=== PATIENT | female | born 1990 | race African-American/Black ===

== ENCOUNTER 2018-11-29 23:54 | Emergency (ER) | payer SELFPAY ==
[~2018-11-29] VITALS: Ht 165.1 cm; Wt 45.4 kg
[~2018-11-29 23:54] MED LIST: ESTR2TAB PO; OMEP40CA5 PO
--- NOTE | 2018-11-30 00:11 | PHYS DOC ---
Past Medical History Past Medical History: Constipation Additional Past Medical Histor: Hernia Past Surgical History: , Hysterectomy Additional Past Surgical Histo: LEEP, D&C , Alcohol Use: Occasionally Drug Use: Marijuana Adult General Chief Complaint Chief Complaint: DIZZY/LIGHT HEADED HPI HPI Patient is a 28 year old female who presents with dizziness. Patient reports that things feel like they're spinning. Worse with change in head position as well as movement. There is nausea with no vomiting. No head trauma. No tinnitus. Fixation on an object does not seem to make things better. Patient was recently diagnosed with a viral syndrome at approximately 4 days ago. She denies any fevers or chills. No neck stiffness.[] Review of Systems Review of Systems Constitutional: Denies fever or chills [] Eyes: Denies change in visual acuity, redness, or eye pain [] HENT: Denies nasal congestion or sore throat [] Respiratory: Denies cough or shortness of breath [] Cardiovascular: No chest pain or palpitations[] GI: Denies abdominal pain, nausea, vomiting, bloody stools or diarrhea [] : Denies dysuria or hematuria [] Musculoskeletal: Denies back pain or joint pain [] Integument: Denies rash or skin lesions [] Neurologic: Denies headache, focal weakness or sensory changes [] Endocrine: Denies polyuria or polydipsia [] All other systems were reviewed and found to be within normal limits, except as documented in this note. Current Medications Current Medications Current Medications Medications (Trade) Dose Ordered Sig/Maldonado Start Time Stop Time Status Last Admin Dose Admin Meclizine HCl (Antivert) 25 mg 1X ONCE 11/30/18 00:15 11/30/18 00:16 DC 11/30/18 00:53 25 MG Ondansetron HCl (Zofran) 4 mg 1X ONCE 11/30/18 00:15 11/30/18 00:16 DC 11/30/18 00:53 4 MG Allergies Allergies Allergies Coded Allergies Type Severity Reaction Last Updated Verified trazodone Allergy Unknown itching 02/26/14 Yes Physical Exam Physical Exam Constitutional: Well developed, well nourished, no acute distress, non-toxic appearance. [] HENT: Normocephalic, atraumatic, bilateral external ears normal, oropharynx moist, no oral exudates, nose normal. [] Eyes: PERRLA, EOMI, conjunctiva normal, no discharge. [] Neck: Normal range of motion, no tenderness, supple, no stridor. [] Cardiovascular:Heart rate regular rhythm, no murmur [] Lungs & Thorax: Bilateral breath sounds clear to auscultation [] Abdomen: Bowel sounds normal, soft, no tenderness, no masses, no pulsatile masses. [] Skin: Warm, dry, no erythema, no rash. [] Back: No tenderness, no CVA tenderness. [] Extremities: No tenderness, no cyanosis, no clubbing, ROM intact, no edema. [] Neurologic: Alert and oriented X 3, normal motor function, normal sensory function, no focal deficits noted. No nystagmus noted with Hallpike maneuvers [] Psychologic: Affect normal, judgement normal, mood normal. [] Current Patient Data Vital Signs Vital Signs Date Time Temp Pulse Resp B/P (MAP) Pulse Ox O2 Delivery O2 Flow Rate FiO2 11/29/18 23:55 98.3 64 16 132/85 (101) 100 Room Air 98.3 Lab Values Laboratory Tests Test 11/30/18 00:30 11/30/18 01:00 White Blood Count 8.8 x10^3/uL (4.0-11.0) Red Blood Count 3.73 x10^6/uL (3.50-5.40) Hemoglobin 12.7 g/dL (12.0-15.5) Hematocrit 35.1 % (36.0-47.0) L Mean Corpuscular Volume 94 fL (79-100) Mean Corpuscular Hemoglobin 34 pg (25-35) Mean Corpuscular Hemoglobin Concent 36 g/dL (31-37) Red Cell Distribution Width 12.2 % (11.5-14.5) Platelet Count 305 x10^3/uL (140-400) Neutrophils (%) (Auto) 32 % (31-73) Lymphocytes (%) (Auto) 60 % (24-48) H Monocytes (%) (Auto) 5 % (0-9) Eosinophils (%) (Auto) 2 % (0-3) Basophils (%) (Auto) 1 % (0-3) Neutrophils # (Auto) 2.8 x10^3uL (1.8-7.7) Lymphocytes # (Auto) 5.2 x10^3/uL (1.0-4.8) H Monocytes # (Auto) 0.5 x10^3/uL (0.0-1.1) Eosinophils # (Auto) 0.2 x10^3/uL (0.0-0.7) Basophils # (Auto) 0.1 x10^3/uL (0.0-0.2) Prothrombin Time 12.9 SEC (11.7-14.0) Prothrombin Time INR 1.0 (0.8-1.1) Sodium Level 140 mmol/L (136-145) Potassium Level 3.7 mmol/L (3.5-5.1) Chloride Level 105 mmol/L (98-107) Carbon Dioxide Level 26 mmol/L (21-32) Anion Gap 9 (6-14) Blood Urea Nitrogen 13 mg/dL (7-20) Creatinine 0.6 mg/dL (0.6-1.0) Estimated GFR (Cockcroft-Gault) 142.0 BUN/Creatinine Ratio 22 (6-20) H Glucose Level 88 mg/dL (70-99) Calcium Level 9.3 mg/dL (8.5-10.1) Magnesium Level 2.0 mg/dL (1.8-2.4) Total Bilirubin 0.2 mg/dL (0.2-1.0) Aspartate Amino Transferase (AST) 16 U/L (15-37) Alanine Aminotransferase (ALT) 35 U/L (14-59) Alkaline Phosphatase 86 U/L (46-116) Total Protein 7.4 g/dL (6.4-8.2) Albumin 3.6 g/dL (3.4-5.0) Albumin/Globulin Ratio 0.9 (1.0-1.7) L Urine Collection Type Unknown Urine Color Yellow Urine Clarity Clear Urine pH 6.5 Urine Specific [place] >=1.030 Urine Protein 30 mg/dL (NEG-TRACE) Urine Glucose (UA) Negative mg/dL (NEG) Urine Ketones (Stick) 15 mg/dL (NEG) Urine Blood Negative (NEG) Urine Nitrite Negative (NEG) Urine Bilirubin Negative (NEG) Urine Urobilinogen Dipstick 1.0 mg/dL (0.2 mg/dL) Urine Leukocyte Esterase Negative (NEG) Urine RBC Occ /HPF (0-2) Urine WBC Occ /HPF (0-4) Urine Squamous Epithelial Cells Mod /LPF Urine Bacteria Few /HPF (0-FEW) Urine Mucus Marked /LPF Urine Opiates Screen Neg (NEG) Urine Methadone Screen Neg (NEG) Urine Barbiturates Neg (NEG) Urine Phencyclidine Screen Neg (NEG) Urine Amphetamine/Methamphetamine Neg (NEG) Urine Benzodiazepines Screen Neg (NEG) Urine Cocaine Screen Neg (NEG) Urine Cannabinoids Screen Pos (NEG) Urine Ethyl Alcohol Neg (NEG) Laboratory Tests 11/30/18 00:30 Laboratory Tests 11/30/18 00:30 EKG EKG EKG shows a sinus rhythm at 65 bpm, normal axis, QTC of 425 ms, no ST elevations.[] Radiology/Procedures Radiology/Procedures CT head without contrast: Reason for examination: Dizziness and vertigo. Axial images were obtained to the brain. No contrast was administered. Exposure: One or more of the following individualized dose reduction techniques were utilized for this examination: 1. Automated exposure control 2. Adjustment of the mA and/or kV according to patient size 3. Use of iterative reconstruction technique. Ventricular systems are symmetric and not dilated. No midline shift is seen. There is no evidence of intracranial hemorrhage, infarct, mass or edema. No abnormalities are seen at the orbits. The paranasal sinuses and mastoid air cells are clear. No acute abnormality seen in the skull. IMPRESSION: No acute intracranial abnormality evident.[] Course & Med Decision Making Course & Med Decision Making Pertinent Labs and Imaging studies reviewed. (See chart for details) Medical decision making: There is no evidence of intracranial mass or bleed, no evidence of anemia nor significant electrolyte abnormality. Cannabinoid show in her urine drug screen, no evidence of any other toxidrome. Dehydration with a slightly elevated BUN to creatinine ratio as well as elevated specific gravity is also noted. ED course: Patient arrived, was placed in bed, tolerated exam well. Patient was by mouth tolerant while in the emergency department. Patient was transported to and from [place] without any difficulty. Patient received some relief of the dizziness with the Antivert. After the return of the lab and imaging studies, these were discussed with the patient who voiced understanding. All questions were answered. Patient was discharged in improved condition.[] Dragon Disclaimer Dragon Disclaimer This electronic medical record was generated, in whole or in part, using a voice recognition dictation system. Departure Departure Impression: Primary Impression: Dizziness Additional Impression: Dehydration Disposition: HOME, SELF-CARE Condition: GOOD Referrals: KYLIE ASCENCIO MD (PCP) Follow-up in 2 days Patient Instructions: Dehydration, Adult, Dizziness Additional Instructions: Drink plenty of fluids. Follow-up with your regular doctor in 2 days. Do not take any medication or drugs that are not prescribed for you. Return to the ER if worsening symptoms or any other concerns. Scripts Meclizine Hcl (MECLIZINE HCL) 25 Mg Tablet 1 TAB PO PRN TID, #30 TAB Prov: DAVID ROMERO DO 11/30/18 Problem Qualifiers DAVID RMOERO DO Nov 30, 2018 00:11
[2018-11-30] MEDS ORDERED: ONDANSETRON PF 4 MG/2 ML VIAL. IV ONE (00:15)
[2018-11-30] MEDS ORDERED: MECLIZINE HCL 12.5 MG TABLET. PO ONE (00:15)
[2018-11-30 00:41] LABS: BASO # 0.1 x10^3/uL (0.0-0.2); BASO % 1 % (0-3); EOS # 0.2 x10^3/uL (0.0-0.7); EOS % 2 % (0-3); HEMATOCRIT 35.1 % (36.0-47.0); HEMOGLOBIN 12.7 g/dL (12.0-15.5); LYMPH # 5.2 x10^3/uL (1.0-4.8); LYMPH % 60 % (24-48); MEAN CORPUSCULAR HEMOGLOBIN 34 pg (25-35); MEAN CORPUSCULAR HGB CONC 36 g/dL (31-37); MEAN CORPUSCULAR VOLUME 94 fL (79-100); MONO # 0.5 x10^3/uL (0.0-1.1); MONO % 5 % (0-9); NEUT # 2.8 x10^3uL (1.8-7.7); NEUT % 32 % (31-73); PLATELET COUNT 305 x10^3/uL (140-400); RED BLOOD COUNT 3.73 x10^6/uL (3.50-5.40); RED CELL DISTRIBUTION WIDTH 12.2 % (11.5-14.5); WHITE BLOOD COUNT 8.8 x10^3/uL (4.0-11.0)
[2018-11-30 00:50] LABS: PROTHROMBIN TIME PATIENT 12.9 SEC (11.7-14.0)
[2018-11-30 00:52] LABS: CALCIUM 9.3 mg/dL (8.5-10.1); CREATININE 0.6 mg/dL (0.6-1.0); POTASSIUM 3.7 mmol/L (3.5-5.1)
[2018-11-30 00:58] LABS: ALBUMIN 3.6 g/dL (3.4-5.0); ALBUMIN/GLOBULIN RATIO 0.9 (1.0-1.7); TOTAL BILIRUBIN 0.2 mg/dL (0.2-1.0); TOTAL PROTEIN 7.4 g/dL (6.4-8.2)
--- NOTE | 2018-11-30 00:59 | RAD ---
CT head without contrast: Reason for examination: Dizziness and vertigo. Axial images were obtained to the brain. No contrast was administered. Exposure: One or more of the following individualized dose reduction techniques were utilized for this examination: 1. Automated exposure control 2. Adjustment of the mA and/or kV according to patient size 3. Use of iterative reconstruction technique. Ventricular systems are symmetric and not dilated. No midline shift is seen. There is no evidence of intracranial hemorrhage, infarct, mass or edema. No abnormalities are seen at the orbits. The paranasal sinuses and mastoid air cells are clear. No acute abnormality seen in the skull. IMPRESSION: No acute intracranial abnormality evident. Electronically signed by: Yasmin Butterfield MD (11/30/2018 12:55 AM) [facility]
[2018-11-30 01:16] LABS: BILIRUBIN,URINE NEGATIVE (NEG); CLARITY,URINE CLEAR; COLOR,URINE YELLOW; NITRITE,URINE NEGATIVE (NEG); PH,URINE 6.5; PROTEIN,URINE 30 mg/dL (NEG-TRACE)
[2018-11-30 01:36] LABS: BARBITURATES NEG (NEG); BENZODIAZEPINES NEG (NEG); CANNABINOIDS POS (NEG); COCAINE NEG (NEG); METHADONE NEG (NEG); OPIATES NEG (NEG); PHENCYCLIDINE NEG (NEG)
[2018-11-30 01:37] LABS: BACTERIA,URINE FEW /HPF (0-FEW); RBC,URINE OCC /HPF (0-2); SQUAMOUS EPITHELIAL CELL,UR MOD /LPF; WBC,URINE OCC /HPF (0-4)
[2018-11-30 01:42] LABS: AMPHETAMINE/METHAMPHETAMINE NEG (NEG)
[2018-11-30 01:49] VITALS: BP 121/68
[2018-11-30] MEDS ORDERED: MECL25TA3 PO (01:52)
--- NOTE | 2018-11-30 03:35 | EKG ---
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
== END 2018-11-30 02:07 | disposition home or self-care (01) ==
LOC: ER 23:54
DX: E86.0 Dehydration (principal); R42 Dizziness and giddiness; Z98.890 Other specified postprocedural states; Z90.710 Acquired absence of both cervix and uterus; Z88.8 Allergy status to other drugs, medicaments and biological substances
CPT/HCPCS: 36415; 70450; 80053; 80307; 81001; 83735; 85025; 85610; 93005; 96374; 99284; J2405; J8597

== ENCOUNTER 2018-12-02 18:37 | Emergency (ER) | payer SELFPAY ==
[~2018-12-02] VITALS: Ht 165.1 cm; Wt 47.6 kg
[~2018-12-02 18:37] MED LIST changes: +MECL25TA3 PO
[2018-12-02 19:00] VITALS: BP 111/58
--- NOTE | 2018-12-02 19:21 | PHYS DOC ---
Past Medical History Past Medical History: Constipation Additional Past Medical Histor: Hernia Past Surgical History: , Hysterectomy Additional Past Surgical Histo: LEEP, D&C , Back Surgery Alcohol Use: None Drug Use: Marijuana Adult General Chief Complaint Chief Complaint: OTHER COMPLAINTS HPI HPI Patient is a 28-year-old female who presents to the emergency room for evaluation. She states that she just hasn't felt like herself this since morning, when she took a muscle relaxer. She is uncertain of the name, but suspects it was a 750 mg tablet of something,, possibly Robaxin. She states she has taken this before, however. She denies any focal pain, vision changes, numbness or focal weakness. She was recently seen in this emergency department as well as [facility], for dizziness. Test results and imaging reports from her recent ER visit as well as physician's notes have been reviewed. She denies any chest pain or shortness of breath, urinary symptoms, nausea, vomiting, or abdominal pain. There are no alleviating or exacerbating factors to her symptoms. Review of Systems Review of Systems Constitutional: Denies fever or chills [] Eyes: Denies change in visual acuity, redness, or eye pain [] HENT: Denies nasal congestion or sore throat [] Respiratory: Denies cough or shortness of breath [] Cardiovascular: The patient denies any shortness of breath, chest pain, palpitations, or orthopnea [] GI: Denies abdominal pain, nausea, vomiting, bloody stools or diarrhea [] : Denies dysuria or hematuria [] Musculoskeletal: Denies back pain or joint pain [] Integument: Denies rash or skin lesions [] Neurologic: Denies headache, focal weakness or sensory changes [] Endocrine: Denies polyuria or polydipsia [] All other systems were reviewed and found to be within normal limits, except as documented in this note. Allergies Allergies Allergies Coded Allergies Type Severity Reaction Last Updated Verified trazodone Allergy Unknown itching 02/26/14 Yes Physical Exam Physical Exam PHYSICAL EXAM: CONSTITUTIONAL: Well developed, well nourished HEAD: normocephalic, atraumatic EENT: PERRL, EOMI. Conjunctivae normal color, no nystagmus, sclerae non-icteric ; moist mucous membranes. NECK: Supple, non-tender; no meningismus. LUNGS: Lungs CTA, breathing even and unlabored. Normal air movement. HEART: Regular rate and rhythm, no murmur CHEST: No deformity; non-tender ABDOMEN: The abdomen is soft, and non-tender, no masses or bruits. EXTREM: Normal ROM; no deformity, no calf tenderness. Normal pulses palpable in all extremities. There is no pedal edema. SKIN: No rash; no diaphoresis NEURO: Alert; normal speech and cognition; CN's grossly intact; strength grossly intact without focal deficit. [id number] and heel bryant testing are normal. BACK: No CVA TTP. Current Patient Data Vital Signs Vital Signs Date Time Temp Pulse Resp B/P (MAP) Pulse Ox O2 Delivery O2 Flow Rate FiO2 12/02/18 19:00 98.4 73 14 111/58 (75) 99 Room Air 98.4 Lab Values Laboratory Tests Test 12/02/18 19:00 Urine Collection Type Unknown Urine Color Yellow Urine Clarity Clear Urine pH 6.5 Urine Specific [place] <=1.005 Urine Protein Negative mg/dL (NEG-TRACE) Urine Glucose (UA) Negative mg/dL (NEG) Urine Ketones (Stick) Negative mg/dL (NEG) Urine Blood Negative (NEG) Urine Nitrite Negative (NEG) Urine Bilirubin Negative (NEG) Urine Urobilinogen Dipstick 0.2 mg/dL (0.2 mg/dL) Urine Leukocyte Esterase Negative (NEG) Urine RBC 1-2 /HPF (0-2) Urine WBC 1-4 /HPF (0-4) Urine Squamous Epithelial Cells Many /LPF Urine Bacteria Many /HPF (0-FEW) Urine Opiates Screen Neg (NEG) Urine Methadone Screen Neg (NEG) Urine Barbiturates Neg (NEG) Urine Phencyclidine Screen Neg (NEG) Urine Amphetamine/Methamphetamine Neg (NEG) Urine Benzodiazepines Screen Neg (NEG) Urine Cocaine Screen Neg (NEG) Urine Cannabinoids Screen Pos (NEG) Urine Ethyl Alcohol Neg (NEG) EKG EKG [Normal sinus rhythm with a normal rate, normal axis, normal intervals, there are no acute ischemic ST/T changes.] Radiology/Procedures Radiology/Procedures [] Course & Med Decision Making Course & Med Decision Making Pertinent Labs and recent Imaging studies reviewed. (See chart for details) [8:00 PM:Patient remains stable. I discussed test results, the need for close follow-up, and return precautions.] Dragon Disclaimer Dragon Disclaimer This electronic medical record was generated, in whole or in part, using a voice recognition dictation system. Departure Departure Impression: Primary Impression: Malaise Additional Impression: Medication reaction Disposition: HOME, SELF-CARE Condition: STABLE Patient Instructions: Drug Reaction, GI Intolerance, Fatigue, Weakness Problem Qualifiers HARMONY CESAR MD Dec 02, 2018 19:21
[2018-12-02 19:34] LABS: BILIRUBIN,URINE NEGATIVE (NEG); CLARITY,URINE CLEAR; COLOR,URINE YELLOW; NITRITE,URINE NEGATIVE (NEG); PH,URINE 6.5; PROTEIN,URINE NEGATIVE (NEG-TRACE); UROBILINOGEN,URINE 0.2 mg/dL (0.2 mg/dL)
[2018-12-02 19:38] LABS: BARBITURATES NEG (NEG); BENZODIAZEPINES NEG (NEG); CANNABINOIDS POS (NEG); COCAINE NEG (NEG); METHADONE NEG (NEG); OPIATES NEG (NEG); PHENCYCLIDINE NEG (NEG)
[2018-12-02 19:40] LABS: SQUAMOUS EPITHELIAL CELL,UR MANY /LPF
[2018-12-02 19:41] LABS: BACTERIA,URINE MANY /HPF (0-FEW)
[2018-12-02 19:43] LABS: AMPHETAMINE/METHAMPHETAMINE NEG (NEG)
--- NOTE | 2018-12-03 06:10 | EKG ---
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
== END 2018-12-02 20:05 | disposition home or self-care (01) ==
LOC: ER 18:37
DX: R53.81 Other malaise (principal); T42.8X5A Adverse effect of antiparkinsonism drugs and other central muscle-tone depressants, initial encounter; Z88.8 Allergy status to other drugs, medicaments and biological substances; Y92.89 Other specified places as the place of occurrence of the external cause
CPT/HCPCS: 80307; 81001; 81025; 87086; 93005; 99284-25

== ENCOUNTER 2019-02-20 18:58 | Emergency (ER) | payer SELFPAY ==
[~2019-02-20] VITALS: Ht 165.1 cm; Wt 47.6 kg
[2019-02-20 20:10] VITALS: BP 118/71
[2019-02-20 20:17] LABS: BILIRUBIN,URINE NEGATIVE (NEG); CLARITY,URINE CLEAR; COLOR,URINE YELLOW; NITRITE,URINE NEGATIVE (NEG); PROTEIN,URINE NEGATIVE (NEG-TRACE)
[2019-02-20 20:24] LABS: BACTERIA,URINE FEW /HPF (0-FEW); RBC,URINE 0 /HPF (0-2); SQUAMOUS EPITHELIAL CELL,UR FEW /LPF
[2019-02-20] MEDS ORDERED: IBUPROFEN 400 MG TABLET. PO ONE ×2 (21:15)
[2019-02-20 21:37] LABS: INFLUENZA A PATIENT NEGATIVE (NEGATIVE); INFLUENZA B PATIENT NEGATIVE (NEGATIVE)
--- NOTE | 2019-02-20 21:44 | PHYS DOC ---
Past Medical History Past Medical History: Constipation Additional Past Medical Histor: Hernia (ANDRES TOVAR PATENT ATTORNEY) Past Surgical History: , Hysterectomy Additional Past Surgical Histo: LEEP, D&C , Back Surgery (ANDRES TOVAR POOL) Alcohol Use: None Drug Use: Marijuana (ANDRES TOVAR PATENT ATTORNEY) Adult General Chief Complaint Chief Complaint: PAIN ON URINATION HPI HPI Patient is a 28 year old female who presents with back pain and dysuria. She felt like she had a fever last night. She states that she is having frequent urination. (ANDRES TOVAR PATENT ATTORNEY) Review of Systems Review of Systems Constitutional: Denies fever or chills [] Eyes: Denies change in visual acuity, redness, or eye pain [] HENT: Denies nasal congestion or sore throat [] Respiratory: Denies cough or shortness of breath [] Cardiovascular: No additional information not addressed in HPI [] GI: Denies abdominal pain, nausea, vomiting, bloody stools or diarrhea [] : See HPI Musculoskeletal: See HPI Integument: Denies rash or skin lesions [] Neurologic: Denies headache, focal weakness or sensory changes [] Endocrine: Denies polyuria or polydipsia [] All other systems were reviewed and found to be within normal limits, except as documented in this note. (ANDRES TOVAR POOL) Current Medications Current Medications Current Medications Medications (Trade) Dose Ordered Sig/Maldonado Start Time Stop Time Status Last Admin Dose Admin Ibuprofen (Motrin) 400 mg STK-MED ONCE 02/20/19 21:15 02/20/19 21:16 DC (EMMANUEL AHMADI MD) Allergies Allergies Allergies Coded Allergies Type Severity Reaction Last Updated Verified trazodone Allergy Unknown itching 02/26/14 Yes (EMMANUEL AHMADI MD) Physical Exam Physical Exam Constitutional: Well developed, well nourished, no acute distress, non-toxic appearance. [] HENT: Normocephalic, atraumatic, bilateral external ears normal, oropharynx moist, no oral exudates, nose normal. [] Eyes: PERRLA, EOMI, conjunctiva normal, no discharge. [] Neck: Normal range of motion, no tenderness, supple, no stridor. [] Cardiovascular:Heart rate regular rhythm, no murmur [] Lungs & Thorax: Bilateral breath sounds clear to auscultation [] Abdomen: Bowel sounds normal, soft, no tenderness, no masses, no pulsatile masses. [] Skin: Warm, dry, no erythema, no rash. [] Back: No point spinal tenderness, mild generalized lumbar tenderness, no CVA tenderness. [] Extremities: No tenderness, no cyanosis, no clubbing, ROM intact, no edema. [] Neurologic: Alert and oriented X 3, normal motor function, normal sensory function, no focal deficits noted. [] Psychologic: Affect normal, judgement normal, mood normal. [] (ANDRES TOVAR APRN) Current Patient Data Lab Values Laboratory Tests Test 02/20/19 19:45 02/20/19 20:56 Urine Collection Type Void Urine Color Yellow Urine Clarity Clear Urine pH 8.0 Urine Specific [place] 1.015 Urine Protein Negative mg/dL (NEG-TRACE) Urine Glucose (UA) Negative mg/dL (NEG) Urine Ketones (Stick) Negative mg/dL (NEG) Urine Blood Negative (NEG) Urine Nitrite Negative (NEG) Urine Bilirubin Negative (NEG) Urine Urobilinogen Dipstick 1.0 mg/dL (0.2 mg/dL) Urine Leukocyte Esterase Negative (NEG) Urine RBC 0 /HPF (0-2) Urine WBC 1-4 /HPF (0-4) Urine Squamous Epithelial Cells Few /LPF Urine Bacteria Few /HPF (0-FEW) Urine Mucus Slight /LPF Influenza Type A Antigen Negative (NEGATIVE) Influenza Type B Antigen Negative (NEGATIVE) (EMMANUEL AHMADI MD) EKG EKG [] (ANDRES TOVAR APRN) Radiology/Procedures Radiology/Procedures [] (ANDRES TOVAR APRN) Course & Med Decision Making Course & Med Decision Making Pertinent Labs and Imaging studies reviewed. (See chart for details) []The patient's urine is negative for a UTI. We will call if it grows out anything on culture. (ANDRES TOVAR APRN) Course & Med Decision Making Staff Physician Addendum: I was working in the ER during the course of this patient's visit. I was available for consultation as needed, but I was not directly involved in the care of this patient. (EMMANUEL AHMADI MD) Dragon Disclaimer Dragon Disclaimer This electronic medical record was generated, in whole or in part, using a voice recognition dictation system. (ANDRES TOVAR APRN) Departure Departure Impression: Primary Impression: Back pain Disposition: HOME, SELF-CARE Condition: STABLE Referrals: NO PCP (PCP) Patient Instructions: Back Pain, Adult Additional Instructions: You may take ibuprofen or Tylenol for pain. Follow-up with your primary care provider in 4 days if not improving or return to the emergency department if worsening. You were negative for influenza. You were negative for urinary tract infection. ANDRES TOVAR APRN Feb 20, 2019 21:44 EMMANUEL AHMADI MD May 03, 2019 18:24
== END 2019-02-20 22:00 | disposition home or self-care (01) ==
LOC: ER 18:58
DX: M54.5 Low back pain (principal); R30.0 Dysuria; Z98.890 Other specified postprocedural states; Z90.710 Acquired absence of both cervix and uterus; Z88.8 Allergy status to other drugs, medicaments and biological substances
CPT/HCPCS: 81001; 87804; 99283

== ENCOUNTER 2019-09-28 19:48 | Emergency (ER) | payer OTHER ==
[~2019-09-28] VITALS: Ht 165.1 cm; Wt 47.6 kg
[~2019-09-28 19:48] MED LIST changes: +OMEP40CA45 PO; -OMEP40CA5 PO
[2019-09-28 20:43] LABS: BILIRUBIN,URINE SMALL (NEG); CLARITY,URINE CLEAR; COLOR,URINE YELLOW; NITRITE,URINE NEGATIVE (NEG); PROTEIN,URINE 100 mg/dL (NEG-TRACE)
[2019-09-28 20:55] LABS: BACTERIA,URINE MODERATE /HPF (0-FEW); SQUAMOUS EPITHELIAL CELL,UR FEW /LPF
[2019-09-28 22:31] VITALS: BP 114/74
--- NOTE | 2019-09-28 22:34 | RAD ---
EXAM: Pelvic ultrasound HISTORY: Right adnexal pain. COMPARISON: 01/10/2014. FINDINGS: Sonographic evaluation of the pelvis was performed transabdominally and transvaginally. The uterus is surgically absent. There is no significant free fluid. A tubular cystic structure in the right adnexa measures 7.4 x 5.2 x 4.8 cm. Another cystic focus adjacent to this measures 2.4 x 1.8 cm. The left ovary measures 2.8 x 2.1 x 1.8 cm. There is normal Doppler flow bilaterally. There are no suspicious lesions. IMPRESSION: 1. A tubular structure in the right adnexa may represent a 7 cm adnexal or ovarian cyst, versus hydrosalpinx. Follow-up could be performed if the diagnosis remains unclear. Electronically signed by: Kim Aquino MD (09/28/2019 10:31 PM) [facility]
[2019-09-28] MEDS ORDERED: METR-34 PO (22:45)
[2019-09-28] MEDS ORDERED: HYDR-2761 PO (22:45)
--- NOTE | 2019-09-28 22:46 | PHYS DOC ---
Past Medical History Past Medical History: Constipation Additional Past Medical Histor: Hernia Past Surgical History: , Hysterectomy Additional Past Surgical Histo: LEEP, D&C , Back Surgery Alcohol Use: None Drug Use: Marijuana Adult General Chief Complaint Chief Complaint: PELVIC PAIN [facility] HPI Patient is a 29 year old AA female who presents to the emergency department with complaints of pelvic pain with white vaginal discharge. Patient states she has had a white vaginal discharge for over a week, she denies any vaginal itching, burning, vaginal odor, or concerns of a sexually transmitted infection. She states that the pain has been so severe it has made her feel nauseated, she denies any vomiting, or diarrhea. Currently she rates her pain an 8 out of 10 on the pain scale, she denies any alleviating factors. Review of Systems Review of Systems Constitutional: Denies fever or chills [] Eyes: Denies redness, or eye pain [] HENT: Denies nasal congestion or sore throat [] Respiratory: Denies cough or shortness of breath [] Cardiovascular: No additional information not addressed in HPI [] GI: Denies abdominal pain, vomiting, bloody stools or diarrhea [] : Denies dysuria or hematuria; see HPI [] Musculoskeletal: Denies back pain Integument: Denies rash or skin lesions [] Neurologic: Denies headache Complete systems were reviewed and found to be within normal limits, except as documented in this note. Current Medications Current Medications Current Medications Medications (Trade) Dose Ordered Sig/[place] Start Time Stop Time Status Last Admin Dose Admin Acetaminophen/ Hydrocodone Bitart (Lortab 5/325) 1 tab 1X ONCE 09/28/19 23:30 09/28/19 23:01 DC 09/28/19 22:54 1 TAB Allergies Allergies Allergies Coded Allergies Type Severity Reaction Last Updated Verified trazodone Allergy Intermediate itching 09/28/19 Yes Physical Exam Physical Exam Constitutional: Well developed, well nourished, no acute distress, non-toxic appearance. [] HENT: Normocephalic, atraumatic, bilateral external ears normal, nose normal. [] Eyes: PERRLA, EOMI, conjunctiva normal, no discharge. [] Neck: Normal range of motion, no stridor. [] Lungs & Thorax: Respirations even and unlabored, no retractions, no respiratory distress Pelvic Exam: Paleologist present Abdomen: Nontender, soft External Genitalia: Normal Skin Speculum: Normal vaginal mucosa, thick white vaginal discharge present, no cervix on exam Bimanual: L adnexal TTP, no adnexal masses Skin: Warm, dry, no erythema, no rash. [] Back: No CVA tenderness. [] Extremities: No cyanosis, ROM intact Neurologic: Alert and oriented X 3, no focal deficits noted. [] Psychologic: Affect normal, judgement normal, mood normal. [] Current Patient Data Vital Signs Vital Signs Date Time Temp Pulse Resp B/P (MAP) Pulse Ox O2 Delivery O2 Flow Rate FiO2 09/28/19 22:54 Room Air 09/28/19 22:31 94 12 114/74 (87) 98 09/28/19 20:00 98.7 98.7 Lab Values Laboratory Tests Test 09/28/19 19:56 Urine Color Yellow Urine Clarity Clear Urine pH 6.0 Urine Specific [place] >=1.030 Urine Protein 100 mg/dL (NEG-TRACE) Urine Glucose (UA) Negative mg/dL (NEG) Urine Ketones (Stick) >=80 mg/dL (NEG) Urine Blood Small (NEG) Urine Nitrite Negative (NEG) Urine Bilirubin Small (NEG) Urine Urobilinogen Dipstick 1.0 mg/dL (0.2 mg/dL) Urine Leukocyte Esterase Negative (NEG) Urine RBC 1-2 /HPF (0-2) Urine WBC 5-10 /HPF (0-4) Urine Squamous Epithelial Cells Few /LPF Urine Bacteria Moderate /HPF (0-FEW) Urine Mucus Mod /LPF Microbiology 09/28/19 Wet Prep - Final, Complete EKG EKG [] Radiology/Procedures Radiology/Procedures PROCEDURE: PELVIS W/TV EXAM: Pelvic ultrasound HISTORY: Right adnexal pain. COMPARISON: 01/10/2014. FINDINGS: Sonographic evaluation of the pelvis was performed transabdominally and transvaginally. The uterus is surgically absent. There is no significant free fluid. A tubular cystic structure in the right adnexa measures 7.4 x 5.2 x 4.8 cm. Another cystic focus adjacent to this measures 2.4 x 1.8 cm. The left ovary measures 2.8 x 2.1 x 1.8 cm. There is normal Doppler flow bilaterally. There are no suspicious lesions. IMPRESSION: 1. A tubular structure in the right adnexa may represent a 7 cm adnexal or ovarian cyst, versus hydrosalpinx. Follow-up could be performed if the diagnosis remains unclear. Course & Med Decision Making Course & Med Decision Making Pertinent Labs and Imaging studies reviewed. (See chart for details) dx: BV, ovarian cyst, pelvic pain 2241- Spoke with Dr. Jolly re: ultrasound report. Will prescribe hydrocodone and have patient follow up with him in office. Prescription for flagyl 500 mg PO BID x7 days and hydrocodone 5/325 mg tabs prn pain #12 written. Pt instructed to follow up with Dr. Jolly about abnormal US findings, return to ER if symptoms worsen, and take medication as prescribed. Patient verbalized an understanding of home care, medications, follow-up, and return to ED instructions and was in agreement with the plan of care.[] [] Dragon Disclaimer Dragon Disclaimer This electronic medical record was generated, in whole or in part, using a voice recognition dictation system. Departure Departure Impression: Primary Impression: Pelvic pain Additional Impressions: Ovarian cyst Bacterial vaginosis Disposition: HOME, SELF-CARE Condition: STABLE Referrals: NO PCP (PCP) KOBE JOLLY MD Patient Instructions: Bacterial Vaginosis, [id number], Ovarian Cyst, [id number], Pelvic Pain, Female, [id number] Additional Instructions: Fill the prescriptions and use as directed. Follow-up with Dr. Jolly, call tomorrow to make an appointment, return to the ER if symptoms worsen. Scripts Hydrocodone Bit/Acetaminophen (HYDROCODONE-APAP 5-325 ) 1 Tab Tablet 1 TAB PO PRN Q6HRS PRN for PAIN for 3 Days, #12 TAB 0 Refills Prov: AZAEL FARIA GREEN CHAINER 09/28/19 Metronidazole (METRONIDAZOLE) 500 Mg Tablet 1 TAB PO BID for 7 Days, #14 TAB 0 Refills Prov: AZAEL FARIA GREEN CHAINER 09/28/19 Problem Qualifiers Additional Impressions: Ovarian cyst Laterality: right Qualified Codes: N83.201 - Unspecified ovarian cyst, right side AZAEL FARIA GREEN CHAINER Sep 28, 2019 22:46
[2019-09-28] MEDS ORDERED: HYDROcodone/APAP 5/325MG 1 TAB TABLET PO ONE (23:30)
[2019-09-30 17:10] LABS: GC PROBE Negative (Negative)
== END 2019-09-28 22:55 | disposition home or self-care (01) ==
LOC: ER 19:48
DX: N83.201 Unspecified ovarian cyst, right side (principal); N76.0 Acute vaginitis; B96.89 Other specified bacterial agents as the cause of diseases classified elsewhere; Z98.890 Other specified postprocedural states; Z90.710 Acquired absence of both cervix and uterus; Z88.8 Allergy status to other drugs, medicaments and biological substances
CPT/HCPCS: 76830; 76856; 81001; 81025; 87086; 87491; 87591; 99285; Q0111; 99284

== ENCOUNTER 2019-10-23 10:37 | Day surgery (SDC) | payer OTHER ==
[~2019-10-23 10:37] MED LIST changes: +HYDR-2761 PO; +HYDROmorphone 2 MG/ML VIAL IV PRN; +IV RINGERS,LACTATED 1000ML 1,000 ML IV SCH; +MECL-75 PO; -MECL25TA3 PO; +METR-34 PO; +MORPHINE SULFATE 2 MG/ML VIAL. IV PRN; +ONDANSETRON PF 4 MG/2 ML VIAL. IV PRN; +PROCHLORPERAZINE 10 MG/2 ML VIAL. IV PRN; +fentaNYL PF VIAL 100 MCG/2 ML VIAL IV PRN
[2019-10-23 11:38] LABS: BASO # 0.1 x10^3/uL (0.0-0.2); BASO % 1 % (0-3); EOS # 0.1 x10^3/uL (0.0-0.7); EOS % 2 % (0-3); HEMATOCRIT 37.2 % (36.0-47.0); HEMOGLOBIN 12.8 g/dL (12.0-15.5); LYMPH # 3.5 x10^3/uL (1.0-4.8); LYMPH % 59 % (24-48); MEAN CORPUSCULAR HEMOGLOBIN 33 pg (25-35); MEAN CORPUSCULAR HGB CONC 34 g/dL (31-37); MEAN CORPUSCULAR VOLUME 95 fL (79-100); MONO # 0.3 x10^3/uL (0.0-1.1); MONO % 5 % (0-9); NEUT # 1.9 x10^3/uL (1.8-7.7); NEUT % 33 % (31-73); PLATELET COUNT 310 x10^3/uL (140-400); RED CELL DISTRIBUTION WIDTH 12.3 % (11.5-14.5); WHITE BLOOD COUNT 5.9 x10^3/uL (4.0-11.0)
[2019-10-23] MEDS ORDERED: BUPIVACAINE-EPI 0.5%-1:200000 MPF 30 ML VIAL. INJ ONE (12:15)
[2019-10-23] MEDS ORDERED: fentaNYL PF VIAL 100 MCG/2 ML VIAL ONE ×2 (12:30→14:34)
[2019-10-23] MEDS ORDERED: ROCURONIUM 50 MG/5 ML VIAL. ONE (12:30)
[2019-10-23] MEDS ORDERED: ONDANSETRON PF 4 MG/2 ML VIAL. ONE (12:31)
[2019-10-23] MEDS ORDERED: LIDOCAINE 2% PF 5 ML VIAL. ONE (12:31)
[2019-10-23] MEDS ORDERED: SEVOFLURANE 61 TO 120 MINUTES. IH ONE (12:31)
[2019-10-23] MEDS ORDERED: PROPOFOL 20 ML IV ONE (12:31)
[2019-10-23] MEDS ORDERED: KETOROLAC 30 MG/ML VIAL. ONE (12:31)
[2019-10-23] MEDS ORDERED: DEXAMETHASONE SOD PHOS 4 MG/ML VIAL ONE (12:31)
[2019-10-23] MEDS ORDERED: NEOSTIGMINE METHYLSULFATE 5 MG/5 ML SYRINGE. ONE (13:19)
[2019-10-23] MEDS ORDERED: GLYCOPYRROLATE 1 MG/5 ML VIAL. ONE (13:19)
[2019-10-23] MEDS ORDERED: NAPR-514 PO (14:28)
[2019-10-23] MEDS ORDERED: OXYC1TAB15 PO (14:28)
[2019-10-23] MEDS: fentaNYL PF VIAL 100 MCG/2 ML VIAL IV PRN ×2 (14:37→14:44)
[2019-10-23] MEDS ORDERED: HYDROcodone/APAP 5/325MG 1 TAB TABLET ONE (14:47)
[2019-10-23 15:00] VITALS: BP 111/66
[2019-10-23] MEDS ORDERED: oxyCODONE/APAP 5/325 1 TAB TABLET PO ONE (15:00)
--- NOTE | 2019-10-23 16:10 | PDOC ---
BRIEF OPERATIVE NOTE Date: Oct 23, 2019 Pre-Op Diagnosis Adnexal Mass Post-Op Diagnosis Right hydroslpinx Procedure Performed Laparoscopic R salpingectomy Surgeon Rik Card Cleaner None Anesthesia Type: General Blood Loss 10cc Specimens Obtained R ova duct Complications None KOBE WISE MD Oct 23, 2019 16:10
--- NOTE | 2019-10-26 16:06 | PATHOLOGY ---
[facility] Accession Number: [id number] . 01 Material submitted: . adnexa - RIGHT HYDROSALPINX. Modifiers: right . 01 Clinical history: . Adnexal mass. . 02 Diagnosis: Fallopian tube, right salpingectomy: - Cystic hydrosalpinx. - Mild chronic inflammation, focal. (JPM:arnoldo; 10/26/2019) QMS 10/26/2019 1041 Local . 02 Comment: There is no evidence of malignancy. (JPM:arnoldo; 10/26/2019) . 02 Electronically signed: . Sven Alonzo MD, Pathologist NPI- [id number] . 01 Gross description: . Received in formalin labeled "Matrha Blank, right hydrosalpinx" is a previously opened pink-barros cystic structure measuring 4.6 x 3.1 x 1.0 cm. Fimbria are not grossly identified. There is a full-thickness defect in the structure measuring 1.0 cm in greatest dimension. The specimen is sectioned to reveal that the cyst wall measures 0.1 cm in thickness. No solid areas are identified. The specimen is submitted entirely in cassettes A1-A6. ([facility] [place]; 10/25/2019) SYC/SYC 10/25/2019 0959 Local . 02 Pathologist provided ICD-10: N70.11 . 02 CPT . 838830 Specimen Comment: A courtesy copy of this report has been sent to [phone] Specimen Comment: Report sent to Performed at: 01 [facility] [address], [place], [place] [id number] MD Patricio Durham MD Phone: [phone] Performed at: 02 [facility] [address] [place], [place] [id number] MD Sven Alonzo MD Phone: [phone]
== END 2019-10-23 15:23 | disposition home or self-care (01) ==
LOC: SURG 10:37
PROVIDERS: ATTEND Specialist
DX: N83.209 Unspecified ovarian cyst, unspecified side (principal)
CPT/HCPCS: 36415; 85025; 86850; 86900; 86901; 88305; A7015; J1100; J1885; J2001; J2405; J2704; J2710; J3010; J3490